=== PATIENT | male | born 1965 | race Caucasian/White ===

== ENCOUNTER → 2021-12-09 | Outpatient (CLI) | payer SELFPAY ==
[~2021-12-09] MED LIST: IOPAMIDOL 370 MG/ML 200 ML INFUS..BTL INJ ONE; SODIUM CHLORIDE 0.9% 100 ML ONE; Z.0.CELEBREX200 MG; Z.0.NEXIUM40 M1; Z.1.COLESTIPOL HCL1
[2021-12-09 09:06] LABS: CREATININE, SERUM 0.85 mg/dL (0.72-1.25)
== END ==
LOC: CT 07:56
PROVIDERS: ATTEND Internal Medicine Interventional Cardiology
DX: I48.91 Unspecified atrial fibrillation (principal); I28.8 Other diseases of pulmonary vessels; I25.10 Atherosclerotic heart disease of native coronary artery without angina pectoris
CPT/HCPCS: 36415; 71275; 82565; 84520; J7050; Q9967

== ENCOUNTER → 2022-08-08 | Day surgery (SDC) | payer BC ==
[2022-08-03 15:12] LABS: BASOPHILS # (AUTO) 0.1 (0.0-0.1); BASOPHILS % 0.9 % (0.0-1.0); EOSINOPHILS # (AUTO) 0.3 (0.0-0.4); EOSINOPHILS % 5.9 % (0.0-6.0); HEMATOCRIT 40.5 % (38.2-49.6); HEMOGLOBIN 13.3 g/dL (14.0-18.0); LYMPHOCYTES # (AUTO) 1.3 (1.0-3.2); LYMPHOCYTES % 22.1 % (18.0-39.1); MEAN CORPUSCULAR HEMOGLOBIN 30.3 pg (28-32); MEAN CORPUSCULAR HGB CONC 32.8 g/dL (31-35); MEAN CORPUSCULAR VOLUME 92.3 fL (81-99); MONOCYTES # (AUTO) 0.4 (0.2-0.8); MONOCYTES % 7.1 % (4.4-11.3); NEUTROPHILS # (AUTO) 3.7 (2.1-6.9); NEUTROPHILS % 63.7 % (38.7-80.0); PLATELET COUNT 147 x10e3/uL (140-360); RED BLOOD COUNT 4.39 x10e6/uL (4.3-5.7); RED CELL DISTRIBUTION WIDTH 12.8 % (11.7-14.4)
[2022-08-03 15:43] LABS: ALBUMIN 4.1 g/dL (3.5-5.0); ALBUMIN/GLOBULIN RATIO 1.5 (0.8-2.0); ANION GAP 15.4 mmol/L (8-16); CALCIUM 9.5 mg/dL (8.4-10.2); CREATININE, SERUM 0.93 mg/dL (0.72-1.25); POTASSIUM 4.4 mmol/L (3.5-5.1)
[~2022-08-08] VITALS: Ht 185.4 cm; Wt 99.8 kg
[~2022-08-08] MED LIST changes: -IOPAMIDOL 370 MG/ML 200 ML INFUS..BTL INJ ONE; +LIDOCAINE HCL 1% 2 ML AMP ONE; +LYRICA150 MG PO; +METOPROLOL SUCC50 MG PO; +PANTOPRAZOLE SO40 MG PO; -SODIUM CHLORIDE 0.9% 100 ML ONE; +TRIBENZOR 40-51 EACH; +XARELTO20 MG PO
[2022-08-08 16:00] VITALS: BP 131/67
== END | disposition home or self-care (01) ==
LOC: CATH LAB 13:40
PROVIDERS: ATTEND Internal Medicine Interventional Cardiology
DX: I48.91 Unspecified atrial fibrillation (principal); Z01.812 Encounter for preprocedural laboratory examination; Z20.822 Contact with and (suspected) exposure to COVID-19; Z79.02 Long term (current) use of antithrombotics/antiplatelets; Z79.899 Other long term (current) drug therapy
CPT/HCPCS: 0223U; 33285; 36415; 80053; 85025; C1764; J2001

== ENCOUNTER 2023-03-21 21:01 | Emergency (ER) | payer BC ==
[~2023-03-21] VITALS: Ht 185.4 cm; Wt 158.8 kg
[~2023-03-21 21:01] MED LIST changes: -LIDOCAINE HCL 1% 2 ML AMP ONE
[2023-03-21] MEDS ORDERED: DEXAMETHASONE SOD PHOS 10 MG/1 ML VIAL IM STA (21:21)
[2023-03-21] MEDS ORDERED: DEXAMETHASONE SOD PHOS INJ 4 MG/ML SDV ONE (21:24)
[2023-03-21] MEDS ORDERED: PREDNISONE20 MG PO (21:45)
[2023-03-21] MEDS ORDERED: VENTOLIN HFA18 GM INH (21:45)
[2023-03-21] MEDS ORDERED: AZITHROMYCIN250 MG PO (21:45)
== END 2023-03-21 22:03 | disposition home or self-care (01) ==
LOC: FSED 21:11
DX: R05.9 Cough, unspecified (principal); J40 Bronchitis, not specified as acute or chronic; R09.81 Nasal congestion; K21.9 Gastro-esophageal reflux disease without esophagitis
CPT/HCPCS: 83518; 87400; 99283; J1100

== ENCOUNTER 2023-03-30 07:04 | Emergency (ER) | payer BC ==
[~2023-03-30] VITALS: Ht 185.4 cm; Wt 158.8 kg
[~2023-03-30 07:04] MED LIST changes: +AZITHROMYCIN250 MG PO; +PREDNISONE20 MG PO; +VENTOLIN HFA18 GM INH
[2023-03-30] MEDS ORDERED: LORATADINE10 MG PO ×2 (07:28→07:42)
[2023-03-30] MEDS ORDERED: NASACORT16.9 ML NS (07:28)
[2023-03-30] MEDS ORDERED: AZITHROMYCIN250 MG PO ×2 (07:28→07:42)
[2023-03-30] MEDS ORDERED: NASACORT16.9 ML (07:42)
== END 2023-03-30 07:42 | disposition home or self-care (01) ==
LOC: FSED 07:11
DX: R05.9 Cough, unspecified (principal); J32.9 Chronic sinusitis, unspecified; J30.9 Allergic rhinitis, unspecified; I10 Essential (primary) hypertension; I48.91 Unspecified atrial fibrillation; K21.9 Gastro-esophageal reflux disease without esophagitis
CPT/HCPCS: 83518; 87400; 99282

== ENCOUNTER 2024-11-03 12:24 | Emergency (ER) | payer BC ==
[~2024-11-03] VITALS: Ht 185.4 cm; Wt 159.7 kg
[~2024-11-03 12:24] MED LIST changes: +LORATADINE10 MG PO; +NASACORT16.9 ML; +NASACORT16.9 ML NS
[2024-11-03] MEDS ORDERED: POTASSIUM CHLO20 ME1 PO (12:44)
[2024-11-03] MEDS ORDERED: LIPITOR20 MG PO (12:44)
[2024-11-03] MEDS ORDERED: AMOXICILLIN500 MG PO (12:58)
[2024-11-03] MEDS ORDERED: CORICIDIN HBP1 EAC3 PO (12:59)
[2024-11-03 13:03] VITALS: PULSE 75; RESP 18; TEMP 97.9
[2024-11-03 13:09] VITALS: BP 114/72; PULSE 75; RESP 18; TEMP 97.9; O2SAT 94
== END 2024-11-03 13:10 | disposition home or self-care (01) ==
LOC: FSED 12:29
DX: R05.9 Cough, unspecified (principal); J02.0 Streptococcal pharyngitis; I10 Essential (primary) hypertension; E78.5 Hyperlipidemia, unspecified; I48.91 Unspecified atrial fibrillation; K21.9 Gastro-esophageal reflux disease without esophagitis; Z11.52 Encounter for screening for COVID-19
CPT/HCPCS: 0223U; 83518; 87400; 99284

== ENCOUNTER 2025-07-27 10:01 | Emergency (ER) | payer BC ==
[~2025-07-27] VITALS: Ht 185.4 cm; Wt 156.9 kg
[~2025-07-27 10:01] MED LIST changes: +AMOXICILLIN500 MG PO; +CORICIDIN HBP1 EAC3 PO; +LIPITOR20 MG PO; +POTASSIUM CHLO20 ME1 PO
[2025-07-27] MEDS ORDERED: FUROSEMIDE40 MG PO (10:42)
[2025-07-27 10:58] VITALS: PULSE 92; RESP 18; TEMP 97.5; O2SAT 95
[2025-07-27] MEDS: DEXAMETHASONE SOD PHOS INJ 4 MG/ML SDV IM ONE (11:46)
== END 2025-07-27 10:58 | disposition home or self-care (01) ==
LOC: FSED 10:08
DX: R05.9 Cough, unspecified (principal); J06.9 Acute upper respiratory infection, unspecified; J30.9 Allergic rhinitis, unspecified; Z11.52 Encounter for screening for COVID-19
CPT/HCPCS: 0223U; 83518; 87400; 96372; 99283; J1100